=== PATIENT | female | born 1995 ===

== ENCOUNTER → 2024-05-07 22:54 | Outpatient (REF) | payer BC, SELFPAY ==
[2024-05-11 06:07] LABS: HPV, High Risk Not Detected; HPV, High Risk Source Cervical
== END ==
LOC: CPAP 22:54
PROVIDERS: ATTENDING PHYSICIAN Nurse Practitioner Family
DX: Z01.419 Encounter for gynecological examination (general) (routine) without abnormal findings (principal); Z11.3 Encounter for screening for infections with a predominantly sexual mode of transmission
CPT/HCPCS: 87491; 87591; 87624

== ENCOUNTER → 2024-05-09 09:42 | Outpatient (REF) | payer BC, SELFPAY ==
[2024-05-09 11:13] LABS: % Basophils 0.5 % (0-2); % Eosinophils 1.1 % (0-6); % Immature Granulocytes 0.5 % (0-0.5); % Lymphocytes 19.7 % (20.5-51.1); % Monocytes 6.2 % (1.7-9.3); Absolute Eosinophils 0.1 10^3/uL (0-0.7); Absolute Lymphocytes 1.7 10^3/uL (1.2-3.4); Absolute Monocytes 0.5 10^3/uL (0.1-0.6); Absolute Neutrophils 6.1 10^3/uL (1.4-6.5); Hematocrit 36.4 % (37.0-47.0); Hemoglobin 12.5 g/dL (12.0-16.0); Mean Corp Hgb Conc. 34.3 g/dL (33.0-37.0); Mean Corpuscular Hgb 30.2 pg (27.0-31.0); Mean Corpuscular Volume 87.9 fL (81.0-99.0); Nucleated Red Blood Cells % 0 %; Platelet Count 301 10^3/uL (130-400); Red Blood Cell Count 4.14 10^6/uL (4.20-5.40); Red Cell Dist. Width 12.1 % (11.5-14.5); White Blood Cell Count 8.4 10^3/uL (4.8-10.8)
[2024-05-09 12:46] LABS: Glycohemoglobin (HgbA1c) 4.8 % (4.0-5.6)
[2024-05-09 12:50] LABS: Urine Albumin Negative (Neg - Trace); Urine Bilirubin Negative (Negative); Urine Character Clear (Clear); Urine Color Yellow; Urine Glucose Negative (Negative); Urine Ketone Negative (Negative); Urine Leukocyte Negative (Negative); Urine Nitrite Negative (Negative); Urine Occult Blood Negative (Negative); Urine Urobilinogen Negative (Neg - 1+)
[2024-05-09 15:18] LABS: Rubella Positive
[2024-05-09 15:43] LABS: Syphilis/T. pallidum Ab Reflex Negative (Negative)
[2024-05-09 16:07] LABS: Hepatitis B Surface Antigen Negative (Negative)
== END ==
LOC: REG 09:42
PROVIDERS: ATTENDING PHYSICIAN Nurse Practitioner Family
DX: Z32.01 Encounter for pregnancy test, result positive (principal)
CPT/HCPCS: 36415; 80055; 81003; 83036; 84702; 86850; 86900; 86901; 87389

== ENCOUNTER → 2024-06-02 14:11 | Outpatient (REF) | payer BC, SELFPAY | LOC: PNTC 14:11 | PROVIDERS: ATTENDING PHYSICIAN Obstetrics & Gynecology | DX: Z36.0 Encounter for antenatal screening for chromosomal anomalies (principal); Z36.82 Encounter for antenatal screening for nuchal translucency | CPT/HCPCS: 76801; 76813 ==

== ENCOUNTER → 2024-07-29 16:51 | Outpatient (REF) | payer BC, SELFPAY | LOC: PNTC 16:51 | PROVIDERS: ATTENDING PHYSICIAN Obstetrics & Gynecology | DX: Z34.82 Encounter for supervision of other normal pregnancy, second trimester (principal) | CPT/HCPCS: 76805 ==

== ENCOUNTER → 2024-08-26 10:47 | Outpatient (REF) | payer BC, SELFPAY | LOC: PNTC 10:47 | PROVIDERS: ATTENDING PHYSICIAN Obstetrics & Gynecology | DX: O44.00 Complete placenta previa NOS or without hemorrhage, unspecified trimester (principal) | CPT/HCPCS: 76816; 76817 ==

== ENCOUNTER → 2024-09-06 07:14 | Outpatient (REF) | payer BC, SELFPAY ==
[2024-09-06 09:16] LABS: % Basophils 0.4 % (0-2); % Eosinophils 1.3 % (0-6); % Lymphocytes 17.4 % (20.5-51.1); % Monocytes 7.4 % (1.7-9.3); % Neutrophils 72.5 % (42.2-75.2); Absolute Eosinophils 0.1 10^3/uL (0-0.7); Absolute Immature Granulocytes 0.1 10^3/uL (0-0.05); Absolute Lymphocytes 1.5 10^3/uL (1.2-3.4); Absolute Monocytes 0.6 10^3/uL (0.1-0.6); Absolute Neutrophils 6.1 10^3/uL (1.4-6.5); Hematocrit 36.9 % (37.0-47.0); Hemoglobin 12.5 g/dL (12.0-16.0); Mean Corp Hgb Conc. 33.9 g/dL (33.0-37.0); Mean Corpuscular Hgb 31.3 pg (27.0-31.0); Mean Corpuscular Volume 92.3 fL (81.0-99.0); Mean Platelet Volume 9.7 fL (7.4-10.4); Nucleated Red Blood Cells % 0 %; Platelet Count 262 10^3/uL (130-400); Red Cell Dist. Width 12.5 % (11.5-14.5); White Blood Cell Count 8.4 10^3/uL (4.8-10.8)
[2024-09-06 09:24] LABS: 1 Hour after 50gm 74 mg/dl
== END ==
LOC: REG 07:14
PROVIDERS: ATTENDING PHYSICIAN Obstetrics & Gynecology
DX: Z34.93 Encounter for supervision of normal pregnancy, unspecified, third trimester (principal)
CPT/HCPCS: 36415; 82950; 85025; 86780